=== PATIENT | male | born 1955 | race Caucasian/White ===

== ENCOUNTER 2016-04-17 14:02 | Inpatient (IN) | payer OTHER ==
[~2016-04-17] VITALS: Ht 185.4 cm; Wt 126.8 kg
[2016-04-18] MEDS ORDERED: DULC5TAB PO (14:12)
[2016-04-18] MEDS ORDERED: FERR324T4 PO (14:12)
[2016-04-18] MEDS ORDERED: OXYC-395 PO (14:12)
[2016-04-18] MEDS ORDERED: ZOLP10TA3 PO (14:12)
[2016-04-18] MEDS ORDERED: LEVO50TA4 PO (14:12)
[2016-04-18] MEDS ORDERED: CENTTAB PO (14:12)
[2016-04-25] VITALS (7 sets, daily range): BP systolic 95–129; BP diastolic 60–78; PULSE 68–86; RESP 16–18; TEMP 97.9–98.9; O2SAT 97–100
[2016-04-25] MEDS ORDERED: ceFAZolin 2 GM PREMIX 50 ML IV SCH (07:15)
[2016-04-25] MEDS ORDERED: INSULIN HUMAN REGULAR 1,000 UNITS/10 ML VIAL SQ PRN (07:15)
[2016-04-25] MEDS ORDERED: LACTATED RINGER'S 1000 ML IV SCH (07:15)
[2016-04-25] MEDS ORDERED: METOPROLOL TARTRATE 25 MG TAB PO PRN (07:15)
[2016-04-25] MEDS ORDERED: METRONIDAZOLE 500 MG/100 ML ISONTONIC SOLN IV SCH (07:15)
[2016-04-25] MEDS ORDERED: SODIUM CHLORID 0.9% 500 ML IV SCH (07:15)
[2016-04-25] MEDS ORDERED: ACETAMINOPHEN 1000 MG/100 ML VIAL IV ONE (07:17)
[2016-04-25] MEDS ORDERED: DEXT 5%-NACL 0.9% 1000 ML INJ 1,000 ML IV SCH (08:00)
[2016-04-25] MEDS ORDERED: DEXAMETHASONE SOD PHOS 4 MG/ML VIAL ONE (08:21)
[2016-04-25] MEDS ORDERED: MIDAZOLAM HCL 2 MG/2 ML VIAL ONE (08:21)
[2016-04-25] MEDS ORDERED: FAMOTIDINE 20 MG/2 ML VIAL ONE (08:21)
--- NOTE | 2016-04-25 10:19 | PD.OP ---
Operative Report Date of Surgery: Apr 25, 2016 Preoperative Diagnosis: rectal cancer Postoperative Diagnosis: same Procedure: cystoscopy with bilateral ureteral catheter placement Anesthesia: NIDHI Surgeon: Emir Bergman Cash Surrender Calculator(s): none Operation and Findings: Request for made for bilateral ureteral catheter placement by Dr. Dey. Patient was brought to the operating room and identified by myself as Amos Hargrove. He was prepped and draped in usual sterile fashion, received preprocedure antibiotics, was placed in dorsal lithotomy position and general endotracheal tube anesthesia was administered. 22 Divehi cystoscope was inserted in the bladder and subramanian cystoscopy did not reveal any abnormalities. Left ureteral orifice was identified and a 5 Divehi open-end catheter was inserted in the left ureteral orifice without difficulty. This was repeated on the right side without difficulty. The Ferguson was inserted and he tolerated the procedure well. Emir Bergman DO Apr 25, 2016 10:18
[2016-04-25] MEDS ORDERED: HYDROmorphone HCL PF 2 MG/ML VIAL ONE (11:23)
[2016-04-25] MEDS ORDERED: ONDANSETRON HCL 4 MG/2 ML VIAL IV PUSH ONE (12:00)
[2016-04-25] MEDS ORDERED: NEOSTIGMINE 3 MG/3 ML SYR IV ONE (12:00)
[2016-04-25] MEDS ORDERED: PROPOFOL 200 MG/20 ML AMP IV ONE (12:00)
[2016-04-25] MEDS ORDERED: LACTATED RINGER'S 1000 ML INJ 1,000 ML IV ONE (12:00)
[2016-04-25] MEDS ORDERED: NORMOSOL R INJ 3,000 ML IV ONE (12:00)
[2016-04-25] MEDS ORDERED: ceFAZolin INJ 1,000 MG VIAL IV ONE (13:30)
[2016-04-25 13:57] LABS: BLOOD GAS BASE EXCESS -1.4 mmol/L (-2-2); BLOOD GAS CARBOXYHEMOGLOBIN 1.9 % (0-4); BLOOD GAS HCO3 24 mmol/L (22-26); BLOOD GAS O2 HGB SATURATION 97 % (90-100); BLOOD GAS OXYGEN CONTENT 15.6 Vol % (12.0-20.0); BLOOD GAS PCO2 48 mmHg (38-42); BLOOD GAS PO2 185 mmHg (61-120); BLOOD GAS TOTAL HGB 11.2 G/DL (12.0-16.0); TEMP CORR TO 98.6
[2016-04-25 13:58] LABS: CRITICAL VALUE NO; DRAW SITE ART LINE; OXYGEN DEVICE VENTILATOR; STAT YES; VENT SETTINGS SEE OR
[2016-04-25 14:21] LABS: AUTOMATED NEUTROPHIL # 7.8 TH/MM3 (1.8-7.7); BASOPHIL % 0.2 % (0.0-2.0); EOSINOPHIL % 0.1 % (0.0-4.0); HEMO FLAGS DIFF FINAL; LYMPHOCYTE # 0.3 TH/MM3 (1.0-4.8); MEAN CELL VOLUME 85.9 FL (80.0-100.0); MEAN CORPUSCULAR HEMOGLOBIN 28.5 PG (27.0-34.0); MEAN CORPUSCULAR HGB CONC 33.2 % (32.0-36.0); MONO % 3.4 % (0.0-8.0); NEUT % 93.3 % (16.0-70.0); PLATELET COUNT 174 TH/MM3 (150-450); RED BLOOD COUNT 3.61 MIL/MM3 (4.50-5.90); RED CELL DISTRIBUTION WIDTH 22.4 % (11.6-17.2); WHITE BLOOD COUNT 8.4 TH/MM3 (4.0-11.0)
[2016-04-25] MEDS ORDERED: POTASSIUM CHLOR 20 MEQ PREMIX 100 ML IV PRN (15:15)
[2016-04-25] MEDS ORDERED: ACETAMINOPHEN 325 MG TAB PO PRN (15:15)
[2016-04-25] MEDS ORDERED: fentaNYL CITRATE 250 MCG/5 ML AMP ONE (15:15)
[2016-04-25] MEDS ORDERED: BENZOCAINE 6 MG/MENTHOL 10 MG LOZENGE SUCK-ON PRN (15:15)
[2016-04-25] MEDS ORDERED: ENALAPRILAT 2.5 MG/2 ML VIAL IV PRN (15:15)
[2016-04-25] MEDS ORDERED: diphenhydrAMINE HCL 50 MG/ML VIAL IV PRN (15:15)
[2016-04-25] MEDS ORDERED: Post-op Orders (for Pharmacy) MISC XX ONE (15:15)
[2016-04-25] MEDS ORDERED: SODIUM CHLORIDE 0.9% FLUSH 5 ML FLUSH IVF PRN (15:15)
[2016-04-25] MEDS ORDERED: ONDANSETRON HCL 4 MG/2 ML VIAL IV PRN (15:15)
[2016-04-25] MEDS ORDERED: ACETAMINOPHEN/HYDROcodone 325 MG/5 MG TAB PO PRN (15:15)
[2016-04-25] MEDS ORDERED: ENALAPRILAT 1.25 MG/ML VIAL IV PRN (15:15)
[2016-04-25] MEDS ORDERED: POTASSIUM CHLOR 40 MEQ PREMIX 100 ML IV PRN (15:15)
[2016-04-25] MEDS ORDERED: NALOXONE HCL 0.4 MG/ML AMP IV PRN (15:15)
[2016-04-25] MEDS ORDERED: *ONDANSETRON 4 MG VIAL PERIprocedural Use ONLY ONE (15:23)
[2016-04-25] MEDS ORDERED: *PROMETHAZINE 25 MG/ML VIAL PERIprocedural use ONLY ONE (15:23)
[2016-04-25] MEDS ORDERED: *morphine SULFATE 8 MG/ML PERIprocedure ONLY ONE (15:45)
[2016-04-25] MEDS: D5-NS + KCL 20 MEQ INJ 1,000 ML IV SCH (15:46)
[2016-04-25 15:48] LABS: AUTOMATED NEUTROPHIL # 9.1 TH/MM3 (1.8-7.7); BASOPHIL % 0.2 % (0.0-2.0); HEMATOCRIT 33.4 % (39.0-51.0); HEMO FLAGS DIFF FINAL; LYMPHOCYTE # 0.3 TH/MM3 (1.0-4.8); MEAN CELL VOLUME 86.3 FL (80.0-100.0); MEAN CORPUSCULAR HEMOGLOBIN 28.6 PG (27.0-34.0); MEAN CORPUSCULAR HGB CONC 33.2 % (32.0-36.0); MONO % 4.6 % (0.0-8.0); NEUT % 92.2 % (16.0-70.0); PLATELET COUNT 199 TH/MM3 (150-450); RED BLOOD COUNT 3.87 MIL/MM3 (4.50-5.90); RED CELL DISTRIBUTION WIDTH 22.1 % (11.6-17.2); WHITE BLOOD COUNT 9.8 TH/MM3 (4.0-11.0)
[2016-04-25 16:04] LABS: BICARBONATE 27.4 MEQ/L (21.0-32.0); POTASSIUM 4.4 MEQ/L (3.5-5.1)
[2016-04-25] MEDS: MORPHINE SULFATE 30 MG/30 ML PCA IV SCH (16:32)
[2016-04-25] MEDS: metroNIDAZOLE 500 MG INJ 100 ML IV SCH (18:55)
[2016-04-25] MEDS: KETOROLAC TROMETHAMINE 30 MG/ML (IVP) VIAL IVP PRN (20:26)
[2016-04-25] MEDS: SODIUM CHLORIDE 0.9% FLUSH 5 ML FLUSH IVF SCH (21:00)
[2016-04-25] MEDS: PCA - TOTAL MG MORPHINE DELIVERED PER SHIFT SCH (22:00)
[2016-04-25] MEDS: ACETAMINOPHEN/HYDROcodone 325 MG/5 MG TAB PO PRN (23:27)
[2016-04-26] VITALS (19 sets, daily range): BP systolic 80–103; BP diastolic 47–65; PULSE 59–79; RESP 14–20; TEMP 98–98.9; O2SAT 93–98
[2016-04-26] MEDS: D5-NS + KCL 20 MEQ INJ 1,000 ML IV SCH ×4 (00:49→12:13)
[2016-04-26] MEDS: metroNIDAZOLE 500 MG INJ 100 ML IV SCH ×2 (00:50→08:26)
[2016-04-26] MEDS: KETOROLAC TROMETHAMINE 30 MG/ML (IVP) VIAL IVP PRN ×3 (05:24→23:31)
[2016-04-26 05:29] LABS: AUTOMATED NEUTROPHIL # 4.1 TH/MM3 (1.8-7.7); BASOPHIL % 0.3 % (0.0-2.0); EOSINOPHIL % 0.1 % (0.0-4.0); HEMATOCRIT 28.3 % (39.0-51.0); HEMO FLAGS DIFF FINAL; LYMPH % 7.8 % (9.0-44.0); LYMPHOCYTE # 0.4 TH/MM3 (1.0-4.8); MEAN CORPUSCULAR HEMOGLOBIN 28.6 PG (27.0-34.0); MEAN CORPUSCULAR HGB CONC 32.9 % (32.0-36.0); MONO % 10.8 % (0.0-8.0); PLATELET COUNT 148 TH/MM3 (150-450); RED BLOOD COUNT 3.25 MIL/MM3 (4.50-5.90); RED CELL DISTRIBUTION WIDTH 22.2 % (11.6-17.2); WHITE BLOOD COUNT 5.1 TH/MM3 (4.0-11.0)
[2016-04-26 05:49] LABS: BICARBONATE 28.6 MEQ/L (21.0-32.0)
[2016-04-26] MEDS: PCA - TOTAL MG MORPHINE DELIVERED PER SHIFT SCH ×3 (05:52→22:00)
[2016-04-26] MEDS: LEVOTHYROXINE SODIUM 50 MCG TAB PO SCH (05:58)
[2016-04-26] MEDS: MORPHINE SULFATE 30 MG/30 ML PCA IV SCH ×2 (08:22→22:29)
[2016-04-26] MEDS: PANTOPRAZOLE SODIUM 40 MG VIAL IVP SCH (08:26)
[2016-04-26] MEDS: SODIUM CHLORIDE 0.9% FLUSH 5 ML FLUSH IVF SCH ×2 (08:35→21:00)
--- NOTE | 2016-04-26 11:32 | HHI.PR ---
Subjective Remarks C/R Surg POD #1 afebrile, VSS UO good LEXA mod stent dc'd Objective - Vital Signs Date Time Temp Pulse Resp B/P Pulse Ox O2 Delivery O2 Flow Rate FiO2 04/26/16 08:00 93 Room Air 04/26/16 08:00 98.0 69 16 103/57 04/26/16 07:44 21 04/25/16 16:00 2 Result Diagram: 04/26/16 0500 04/26/16 0500 Objective Remarks PE alert Abd - soft, wound dry, stoma pink A/P Assessment and Plan Imp: stable, OOB tx to floor decr IVF Beto Carl MD Apr 26, 2016 11:32
[2016-04-26] MEDS: ACETAMINOPHEN/HYDROcodone 325 MG/5 MG TAB PO PRN (14:40)
[2016-04-26] MEDS: HEPARIN SODIUM - SQ 10,000 UNITS/ML VIAL SQ SCH (14:41)
--- NOTE | 2016-04-26 18:27 | MP ---
cc: HEENA SUERO MD,ERNIE EASLEY MD, MD MARSHA, LEMUEL JULES MD DATE OF SURGERY 04/25/16 PREOPERATIVE DIAGNOSIS Rectal cancer. POSTOPERATIVE DIAGNOSIS Rectal cancer. PROCEDURE Robotic lysis of adhesions. Robotic abdominoperineal resection (APR). SURGEON Aishwarya Jules MD TECHNICIAN CHEMICAL CLEANING Lasha ANESTHESIA General per ET tube ESTIMATED BLOOD LOSS 400 mL OPERATIVE INDICATIONS The patient is a 60-year-old male who was recently diagnosed with an extremely low rectal cancer. He underwent neoadjuvant chemotherapy and radiation and presented for resection. OPERATIVE FINDINGS There was no visible tumor or other abnormalities noted within the liver. The gallbladder was not visualized. He had a quite redundant sigmoid colon and when the specimen was removed, he had a scar at the area of the previous tumor, just above the anal verge but no visible tumor. PROCEDURE IN DETAIL The patient was brought to the operating room and placed in the supine position. After induction of general anesthesia, the patient was placed in Foster stirrups and all bony prominences were carefully padded. The skin of the anterior abdominal wall, as well as the perineal area, was then prepped and draped in the usual sterile fashion. Dr. Bergman then came in and performed cystoscopy with placement of bilateral ureteral catheters: Please see his operative note for details. A site was then chosen for the camera, being located 2 cm to the right and above the umbilicus. A 10-12 trocar was placed at this location under direct vision, using the laparoscope. CO2 insufflation was undertaken, and a brief abdominal survey was performed with nothing noted that would preclude the robotic approach. There were some small adhesions to the anterior abdominal wall. The remainder of the port sites were then placed as follows: #1 port was placed just inside the right anterior superior iliac spine. This was 10-12 port. A #5 assist port was placed below the right costal margin, in the right midclavicular line. The #3 port was placed in line with the umbilicus, in the right anterior axillary line, and the #2 port was placed just above the umbilical line, in the left midclavicular line. The patient was hydroplaned with head down and slightly to the right, and the small bowel was gently retracted up and out of the pelvis and to the right. The robot was then docked. The sigmoid colon was retracted down and to the right, and the peritoneum was scored on the right. Dissection continued in this plane, posterior to the vessels, over laterally and down into the pelvis. At this point however, most likely due to the radiation, the tissue was somewhat sticky and I was not really able to appreciate the left ureter. The sigmoid colon was retracted down to the right and the lateral peritoneal attachments were dissected free, until the left ureter was clearly identified. This was then swept away from the specimen. Dissection then continued underneath, freeing up the undersurface of the inferior mesenteric vessels just at the takeoff from the aorta. These vessels were slowly and painstakingly dissected free circumferentially, doubly clamped proximally, singly distally, and divided. Attention was then turned posteriorly. Dissection continued in the pelvis posteriorly down to the level of the distal rectum. Due to the radiation effect, there was quite a bit of oozing throughout this portion of the procedure. Dissection then continued up and around the right lateral pelvic sidewall. On the left pelvic sidewall there was noticed to be some scar tissue, which was dissected free prior to doing our final resection. Dissection continued then both posteriorly and to the right and left of the rectum, down to the level of the pelvic floor. A site was then chosen for proximal division of the bowel, where it would come up nicely to the abdominal wall. The mesentery at this level was divided using the harmonic scalpel and the echelon Endo stapler was placed across the bowel at this level. All dissection beds were then examined and hemostasis was obtained with electrocautery. The robot was then undocked. The perineal portion of the procedure then was completed as follows: A lenticular shaped incision was made sharply around the anus and, using electrocautery, dissection was carried up just outside the rectum gradually and slowly dissecting up and into the pelvis. Eventually, we were able to dissect this free circumferentially, and deliver the distal end of the bowel out through the perineal opening. Hemostasis was then obtained with electrocautery, and the area was irrigated with warm normal saline. The levator ani was reapproximated in an interrupted fashion using #1 PDS and the more superficial tissue was then reapproximated in interrupted fashion using 0 Vicryl sutures. The skin was then closed in an interrupted subcuticular fashion using 3-0 Vicryl and two sutures of 2-0 nylon were then placed as well. CO2 insufflation was then resumed, and the laparoscope was introduced into the field. The 10-12 trocar sites were then closed with the crossbow closure device and 0 Vicryl suture, and held but not completely closed. A #10 LEXA was placed through the left lower quadrant port site into the pelvis, and Gorge was gently dusted through the pelvis as well. All dissection beds were examined and there was no sign of any significant bleeding. CO2 insufflation was then removed. The previously placed fascial sutures were then closed. The skin was then closed at the port sites, using 3-0 Vicryl in an interrupted subcuticular fasion and the drain was sutured in place using 3-0 nylon. A site was then chosen for the stoma, being located 1[address] the umbilicus to the left anterior superior iliac spine, at the midportion of the rectus abdominis muscle. A 1.5 cm ellipse of skin was then removed sharply and the preperitoneal fat was removed with electrocautery. A 1.5 cm incision was then made in the fascia vertically, and the fibers of the rectus abdominis muscle were then split. The posterior fascia was incised the length of the anterior fascial incision. The proximal stapled end of the bowel was then brought up through the incision and the stoma was then matured in a typical Alisson fashion, using 3-0 Vicryl. A stomal appliance and sterile dressing were then applied. All sponge, needle and instrument counts were correct. The right ureteral stent was then removed and the patient was returned to the post anesthesia care unit in stable condition. MD WAI Zazueta/ /3:17 PM /6:06 PM [facility]
[2016-04-26 21:43] LABS: MAGNESIUM 2.1 MG/DL (1.5-2.5)
[2016-04-27] VITALS (13 sets, daily range): BP systolic 81–129; BP diastolic 41–76; PULSE 67–94; RESP 14–18; TEMP 97.7–99; O2SAT 92–100
[2016-04-27] MEDS: HEPARIN SODIUM - SQ 10,000 UNITS/ML VIAL SQ SCH ×2 (03:31→16:51)
[2016-04-27 04:10] LABS: AUTOMATED NEUTROPHIL # 3.9 TH/MM3 (1.8-7.7); BASOPHIL % 0.4 % (0.0-2.0); EOSINOPHIL % 0.7 % (0.0-4.0); HEMATOCRIT 25.9 % (39.0-51.0); HEMO FLAGS DIFF FINAL; LYMPH % 6.9 % (9.0-44.0); LYMPHOCYTE # 0.3 TH/MM3 (1.0-4.8); MEAN CELL VOLUME 86.3 FL (80.0-100.0); MEAN CORPUSCULAR HEMOGLOBIN 29.1 PG (27.0-34.0); MEAN CORPUSCULAR HGB CONC 33.7 % (32.0-36.0); MONO % 11.2 % (0.0-8.0); NEUT % 80.8 % (16.0-70.0); PLATELET COUNT 133 TH/MM3 (150-450); RED CELL DISTRIBUTION WIDTH 21.6 % (11.6-17.2); WHITE BLOOD COUNT 4.8 TH/MM3 (4.0-11.0)
[2016-04-27 04:31] LABS: BICARBONATE 26.8 MEQ/L (21.0-32.0); POTASSIUM 3.9 MEQ/L (3.5-5.1)
[2016-04-27] MEDS: PCA - TOTAL MG MORPHINE DELIVERED PER SHIFT SCH (06:00)
[2016-04-27] MEDS: D5-NS + KCL 20 MEQ INJ 1,000 ML IV SCH (08:13)
[2016-04-27] MEDS: SODIUM CHLORIDE 0.9% FLUSH 5 ML FLUSH IVF SCH ×2 (08:20→21:00)
[2016-04-27] MEDS: KETOROLAC TROMETHAMINE 30 MG/ML (IVP) VIAL IVP PRN (08:20)
[2016-04-27] MEDS: LEVOTHYROXINE SODIUM 50 MCG TAB PO SCH (08:22)
[2016-04-27] MEDS: PANTOPRAZOLE SODIUM 40 MG VIAL IVP SCH (08:25)
[2016-04-27] MEDS: ACETAMINOPHEN/HYDROcodone 325 MG/5 MG TAB PO PRN ×2 (11:03→18:17)
[2016-04-27] MEDS: 1/2 NS + KCL 20 MEQ INJ 1,000 ML IV SCH (12:00)
[2016-04-27] MEDS ORDERED: POTASSIUM CHLORIDE INJ 20 MEQ in SODIUM CHLOR 0.45% 1000 ML INJ 1,000 ML IV SCH (12:00)
--- NOTE | 2016-04-27 15:15 | MB ---
cc: MIGUELINA FLORES M.D. DATE OF CONSULTATION: 04/27/2016. REASON FOR CONSULTATION: Syncopal episode. HISTORY OF PRESENT ILLNESS: Mr. Garcia is a 60-year-old gentleman with morbid obesity and high blood pressure. He has rectal cancer. He was on radiation and chemotherapy. He was admitted for a low anterior resection. During hospitalization, he was put on a morphine pump. The surgery was done on the . The gentleman was ambulating yesterday and today he was ambulating again. Today during a walk the gentleman was still dizzy and was sitting down and he passed out. He had adequate pulse and systolic blood pressure was 116. The gentleman rapidly recuperated from the episode. There was no recording in the telemetry of what happened but the nurse made sure there were some good pulses. The gentleman recuperated all his neurological and motor capacity. There was no loss of sphincter control. I was consulted by ____ for evaluation and management. The case was extensively discussed with him over the phone. The chart was reviewed. The patient was evaluated. ALLERGIES: None. SOCIAL HISTORY: Currently the gentleman denies smoking and drinking. FAMILY HISTORY: Noncontributory to his current medical condition. MEDICATIONS: 1. Ancef. 2. Metronidazole. 3. Potassium. 4. Warren. 5. Morphine IV pump was discontinued. 6. Enalapril IV. 7. Levoxyl. 8. Toradol. 9. Protonix. REVIEW OF SYSTEMS: Currently he refers no chest pain and no chest discomfort. Some pain at the surgical site but received Warren already. No fever. PHYSICAL EXAMINATION: GENERAL: Alert, fully oriented, very pleasant. There are a lot of people/family at bedside. VITAL SIGNS: Blood pressure 105/65, pulse 94, respiratory rate 18. LUNGS: Ventilated. CARDIOVASCULAR: S1 and S2. Regular. ABDOMEN: Abdomen obese, no mass, no bruits. EXTREMITIES: No edema. EKGS: Electrocardiogram shows sinus rhythm. Telemetry indicates a rate of around 80 beats per minute but the EKG yesterday indicates sinus rhythm, , right bundle-branch block and minimal S-T changes. LABORATORY DATA: Hemoglobin is 8.7, white blood cells 4.8. Creatinine is 1.26, potassium 3.9. ASSESSMENT AND RECOMMENDATIONS: Mr. Garcia currently is stable. His blood pressure is adequate. He is in sinus rhythm. There was atrial bigeminy on the electrocardiogram yesterday that is not significant. The gentleman apparently had a vagal episode. Blood pressure recuperated rapidly. There is no chest pain or chest discomfort. No arrhythmia recorded. His hemoglobin is low at 8.7. There may be an issue of fluid and dehydration. At this point, my recommendation: 1. Continue with current management. 2. Increase fluid intake. 3. I am going to order a 2-D echocardiogram to evaluate wall motion and valvular function. I will follow him during the hospitalization. Miguelina Flores MD /SHERRELL /2:24 PM /3:06 PM
--- NOTE | 2016-04-27 15:16 | EKG ---
Date Performed: 04/26/2016 Time Performed: 18:38:58 PTAGE: 60 years EKG: Sinus rhythm with frequent PVC(s), with one couplet of PVC's Right bundle branch block Inferior T wave changes ar e nonspecific Low QRS voltages in precordial leads When compared to previous tracing, the PVC's are n ew. Abnormal ECG PREVIOUS TRACING : 04/18/2016 10.43 DOCTOR: Ike Suarez Interpretating Date/Time 04/27/2016 15:15:53
--- NOTE | 2016-04-27 21:14 | HHI.PR ---
Subjective Remarks C/R Surg POD #2 afebrile, VSS - syncopal episode - vagal UO good LEXA mod Objective - Vital Signs Date Time Temp Pulse Resp B/P Pulse Ox O2 Delivery O2 Flow Rate FiO2 04/27/16 15:00 97.7 77 18 110/64 98 04/27/16 08:00 Room Air 04/26/16 20:22 21 04/25/16 16:00 2 Result Diagram: 04/27/16 0329 04/27/16 0329 Objective Remarks PE alert Abd - soft, wound dry, stoma pink min tympany A/P Assessment and Plan Imp: stable, OOB cardiac galeana decr IVF adv PO Beto Carl MD Apr 27, 2016 21:13
[2016-04-28] VITALS (20 sets, daily range): BP systolic 107–125; BP diastolic 66–80; PULSE 67–91; RESP 18; TEMP 97.7–98.7; O2SAT 95–98
[2016-04-28] MEDS: ACETAMINOPHEN/HYDROcodone 325 MG/5 MG TAB PO PRN (00:51)
[2016-04-28] MEDS: KETOROLAC TROMETHAMINE 30 MG/ML (IVP) VIAL IVP PRN (05:10)
[2016-04-28] MEDS: HEPARIN SODIUM - SQ 10,000 UNITS/ML VIAL SQ SCH ×2 (05:10→13:35)
[2016-04-28] MEDS: LEVOTHYROXINE SODIUM 50 MCG TAB PO SCH (05:10)
[2016-04-28] MEDS: 1/2 NS + KCL 20 MEQ INJ 1,000 ML IV SCH ×2 (05:11→22:55)
[2016-04-28] MEDS: SODIUM CHLORIDE 0.9% FLUSH 5 ML FLUSH IVF SCH ×2 (08:09→20:11)
[2016-04-28] MEDS: PANTOPRAZOLE SODIUM 40 MG VIAL IVP SCH (08:14)
[2016-04-28 09:14] LABS: AUTOMATED NEUTROPHIL # 3.1 TH/MM3 (1.8-7.7); BASOPHIL % 0.3 % (0.0-2.0); EOSINOPHIL # 0.1 TH/MM3 (0-0.4); EOSINOPHIL % 2.3 % (0.0-4.0); HEMATOCRIT 26.3 % (39.0-51.0); HEMO FLAGS DIFF FINAL; LYMPH % 6.7 % (9.0-44.0); LYMPHOCYTE # 0.2 TH/MM3 (1.0-4.8); MEAN CELL VOLUME 86.8 FL (80.0-100.0); MEAN CORPUSCULAR HGB CONC 33.4 % (32.0-36.0); MONO % 7.9 % (0.0-8.0); NEUT % 82.8 % (16.0-70.0); PLATELET COUNT 117 TH/MM3 (150-450); RED BLOOD COUNT 3.03 MIL/MM3 (4.50-5.90); RED CELL DISTRIBUTION WIDTH 21.5 % (11.6-17.2); WHITE BLOOD COUNT 3.7 TH/MM3 (4.0-11.0)
[2016-04-28 09:36] LABS: BICARBONATE 29.2 MEQ/L (21.0-32.0); POTASSIUM 3.8 MEQ/L (3.5-5.1)
--- NOTE | 2016-04-28 09:44 | HHI.PR ---
Subjective Remarks POD #3 s/p robotic ROLANDO, APR Still sore, particularly on right Objective Vital Signs Date Time Temp Pulse Resp B/P Pulse Ox O2 Delivery O2 Flow Rate FiO2 04/28/16 09:14 73 04/28/16 08:01 67 04/28/16 07:52 72 04/28/16 07:52 98.7 72 18 114/77 95 04/28/16 07:52 95 Room Air 04/28/16 06:10 18 04/28/16 06:00 68 04/28/16 03:00 98 Nasal Cannula 2.00 04/28/16 03:00 98.2 68 18 120/79 98 04/28/16 01:55 18 04/27/16 23:00 71 04/27/16 23:00 99 Nasal Cannula 2.00 04/27/16 23:00 98.2 71 18 129/76 99 04/27/16 21:30 94 BLEED-IN 2.00 04/27/16 19:00 99 Nasal Cannula 2.00 04/27/16 19:00 79 04/27/16 19:00 98.3 79 18 125/75 100 04/27/16 15:00 97.7 77 18 110/64 98 04/27/16 15:00 79 04/27/16 11:00 98.0 94 18 105/65 98 I/O 04/27/16 04/27/16 04/27/16 04/28/16 04/28/16 04/28/16 07:00 15:00 23:00 07:00 15:00 23:00 Intake Total 3473 ml 2100 ml 1404 ml Output Total 1370 ml 1710 ml 1165 ml Balance 2103 ml 390 ml 239 ml Intake Oral 720 ml 1000 ml 660 ml IV Total 2753 ml 1100 ml 744 ml Output Urine Total 1300 ml 1600 ml 1100 ml Stool Total 0 ml 25 ml Drainage Total 70 ml 110 ml 40 ml Result Diagram: 04/28/16 0845 04/28/16 0845 Objective Remarks Abdomen soft, nondistended, tender Wounds clean, stoma pink Perineum clean Assessment and Plan Assessment and Plan Await Echo Advance diet D/C young 1 unit PRBC Lasix Increase dose hydrocodone Holley Dey MD Apr 28, 2016 09:44
[2016-04-28] MEDS: ACETAMINOPHEN/HYDROcodone 325 MG/7.5 MG TAB PO PRN ×4 (09:58→20:09)
[2016-04-28] MEDS: FUROSEMIDE 20 MG/2 ML VIAL IV PUSH SCH (17:47)
--- NOTE | 2016-04-28 22:55 | HHI.PR ---
Subjective Remarks Feeling ok. Some back pain Objective Vital Signs Date Time Temp Pulse Resp B/P Pulse Ox O2 Delivery O2 Flow Rate FiO2 04/28/16 21:00 80 04/28/16 20:00 74 04/28/16 19:00 71 04/28/16 19:00 98.2 71 18 107/69 95 04/28/16 19:00 95 Room Air 04/28/16 18:55 18 04/28/16 18:02 74 04/28/16 17:01 80 04/28/16 16:01 84 04/28/16 15:31 18 04/28/16 15:30 97.7 79 18 111/77 97 04/28/16 15:30 97 Room Air 04/28/16 15:30 91 04/28/16 14:29 76 04/28/16 13:06 97.8 70 18 112/66 97 04/28/16 13:04 70 04/28/16 13:03 97.9 68 18 125/69 97 04/28/16 12:03 89 04/28/16 11:38 89 04/28/16 11:38 98.2 76 18 124/80 95 04/28/16 11:38 95 Room Air 04/28/16 10:47 96 21 04/28/16 10:01 83 04/28/16 09:14 73 04/28/16 08:01 67 04/28/16 07:52 72 04/28/16 07:52 98.7 72 18 114/77 95 04/28/16 07:52 95 Room Air 04/28/16 06:10 18 04/28/16 06:00 68 04/28/16 03:00 98 Nasal Cannula 2.00 04/28/16 03:00 98.2 68 18 120/79 98 04/28/16 01:55 18 04/27/16 23:00 71 04/27/16 23:00 99 Nasal Cannula 2.00 04/27/16 23:00 98.2 71 18 129/76 99 I/O 04/27/16 04/27/16 04/27/16 04/28/16 04/28/16 04/28/16 07:00 15:00 23:00 07:00 15:00 23:00 Intake Total 3473 ml 2100 ml 1404 ml 1390 ml Output Total 1370 ml 1710 ml 1165 ml 650 ml Balance 2103 ml 390 ml 239 ml 740 ml Intake Oral 720 ml 1000 ml 660 ml 480 ml IV Total 2753 ml 1100 ml 744 ml 650 ml Packed Cells 260 ml Output Urine Total 1300 ml 1600 ml 1100 ml 550 ml Stool Total 0 ml 25 ml Drainage Total 70 ml 110 ml 40 ml 100 ml Result Diagram: 04/28/16 0845 04/28/16 0845 Imaging Alert, fully oriented, in bed Lungs: ventilated Heart: S1, S2 regular, no gallop Abdomen: soft, no mass Ext: no edema Current Medications Medications (Trade) Dose Ordered Sig/Joyce Route Start Time Stop Time Status Last Admin (NS Flush) 2 ml UNSCH PRN IVF 04/25/16 15:15 (NS Flush) 2 ml BID IVF 04/25/16 21:00 04/28/16 20:11 (Protonix Inj) 40 mg DAILY IVP 04/26/16 09:00 04/28/16 08:14 (Zofran Inj) 4 mg Q6H PRN IV 04/25/16 15:15 04/25/16 23:28 (Vasotec Inj) 1.25 mg Q4H PRN IV 04/25/16 15:15 (Vasotec Inj) 2.5 mg Q6H PRN IV 04/25/16 15:15 Benzocaine/ Menthol 1 lozenge 1 lozenge UNSCH PRN SUCK-ON 04/25/16 15:15 Potassium Chloride 100 ml @ 50 mls/hr UNSCH PRN IV 04/25/16 15:15 (KCl 40 Meq Premix Inj) 100 ml @ 25 mls/hr UNSCH PRN IV 04/25/16 15:15 (Heparin Inj) 5,000 units Q12H SQ 04/26/16 14:15 04/28/16 13:35 (Narcan Inj) 0.4 mg UNSCH PRN IV 04/25/16 15:15 (Benadryl Inj) 25 mg Q6H PRN IV 04/25/16 15:15 04/25/16 23:27 (Morphine 1 Mg/ ml NITRATE OPERATOR) 30 mg UNSCH IV 04/25/16 15:15 04/26/16 22:29 Levothyroxine Sodium 50 mcg 50 mcg DAILY@06 PO 04/26/16 06:00 04/28/16 05:10 (1/2 NS + KCl 20 Meq Inj) 1,000 ml @ 60 mls/hr [id number] IV 04/27/16 12:00 04/28/16 05:11 (Lasix Inj) 20 mg BID@09,18 IV PUSH 04/28/16 18:00 04/30/16 17:59 04/28/16 17:47 ([place] 7.5-325 Mg) 1 tab Q6H PRN PO 04/28/16 09:45 04/28/16 20:09 ([place] 7.5-325 Mg) 2 tab Q6H PRN PO 04/28/16 09:45 04/28/16 14:24 Assessment and Plan Problem List: (1) Syncope Status: Acute Plan: No new episode reported, Ambulating again. No chest pain, no palpitation. No pause observed on telemetry. Continue with current management Jv Vega MD Apr 28, 2016 22:55
[2016-04-29] VITALS: BP 106/72; PULSE 76; RESP 20; TEMP 98; O2SAT 96
[2016-04-29] MEDS: ACETAMINOPHEN/HYDROcodone 325 MG/7.5 MG TAB PO PRN ×4 (01:37→20:35)
[2016-04-29] MEDS: HEPARIN SODIUM - SQ 10,000 UNITS/ML VIAL SQ SCH ×2 (01:37→14:50)
[2016-04-29] MEDS: LEVOTHYROXINE SODIUM 50 MCG TAB PO SCH (06:32)
[2016-04-29 08:00] VITALS: BP 132/77; PULSE 70; RESP 17; TEMP 97.4; O2SAT 91
[2016-04-29] MEDS: FUROSEMIDE 20 MG/2 ML VIAL IV PUSH SCH ×2 (08:27→17:07)
[2016-04-29] MEDS: SODIUM CHLORIDE 0.9% FLUSH 5 ML FLUSH IVF SCH ×2 (08:27→20:35)
[2016-04-29] MEDS: PANTOPRAZOLE SODIUM 40 MG VIAL IVP SCH (08:28)
[2016-04-29 12:00] VITALS: BP 120/78; PULSE 89; RESP 17; TEMP 97.1; O2SAT 92
[2016-04-29] MEDS: 1/2 NS + KCL 20 MEQ INJ 1,000 ML IV SCH (15:25)
[2016-04-29 16:00] VITALS: BP 122/70; PULSE 80; RESP 17; TEMP 95.4; O2SAT 94
--- NOTE | 2016-04-29 18:13 | HHI.PR ---
Subjective Remarks POD #4 s/p robotic ROLANDO, APR Comfortable now, pain earlier Objective Vital Signs Date Time Temp Pulse Resp B/P Pulse Ox O2 Delivery O2 Flow Rate FiO2 04/29/16 16:00 95.4 80 17 122/70 94 04/29/16 15:49 Room Air 2.00 21 04/29/16 12:00 Room Air 2.00 21 04/29/16 12:00 97.1 89 17 120/78 92 04/29/16 08:25 Room Air 2.00 21 04/29/16 08:00 97.4 70 17 132/77 91 04/29/16 00:00 98.0 76 20 106/72 96 04/28/16 21:00 80 04/28/16 20:00 74 04/28/16 19:00 71 04/28/16 19:00 98.2 71 18 107/69 95 04/28/16 19:00 95 Room Air 04/28/16 18:55 18 I/O 04/28/16 04/28/16 04/28/16 04/29/16 04/29/16 04/29/16 07:00 15:00 23:00 07:00 15:00 23:00 Intake Total 1404 ml 1850 ml 701 ml 736 ml Output Total 1165 ml 1750 ml 650 ml 2355 ml Balance 239 ml 100 ml 51 ml -1619 ml Intake Oral 660 ml 700 ml 240 ml 240 ml IV Total 744 ml 890 ml 461 ml 496 ml Packed Cells 260 ml Output Urine Total 1100 ml 1550 ml 650 ml 2225 ml Stool Total 25 ml 50 ml Drainage Total 40 ml 150 ml 130 ml # Bowel Movements 0 Result Diagram: 04/28/16 0845 04/28/16 0845 Objective Remarks Abdomen soft, nondistended, tender Wounds clean, stoma pink Perineum clean Assessment and Plan Assessment and Plan HL IV Home soon Holley Dey MD Apr 29, 2016 18:12
[2016-04-29 18:20] VITALS: O2SAT 94
[2016-04-29 20:00] VITALS: BP 118/78; PULSE 71; RESP 17; TEMP 98.9; O2SAT 94
[2016-04-30] VITALS: BP 114/68; PULSE 82; RESP 17; TEMP 97.9; O2SAT 94
[2016-04-30] MEDS: HEPARIN SODIUM - SQ 10,000 UNITS/ML VIAL SQ SCH (01:56)
[2016-04-30] MEDS: LEVOTHYROXINE SODIUM 50 MCG TAB PO SCH (05:13)
[2016-04-30] MEDS: ACETAMINOPHEN/HYDROcodone 325 MG/7.5 MG TAB PO PRN ×3 (05:13→18:13)
[2016-04-30 08:00] VITALS: BP 116/77; PULSE 75; RESP 18; TEMP 98.9; O2SAT 94
[2016-04-30 10:03] VITALS: O2SAT 94
[2016-04-30] MEDS: FUROSEMIDE 20 MG/2 ML VIAL IV PUSH SCH (10:05)
[2016-04-30] MEDS: PANTOPRAZOLE SODIUM 40 MG VIAL IVP SCH (10:06)
[2016-04-30] MEDS: SODIUM CHLORIDE 0.9% FLUSH 5 ML FLUSH IVF SCH (10:06)
[2016-04-30 12:00] VITALS: BP 120/81; PULSE 84; RESP 19; TEMP 98.7; O2SAT 93
[2016-04-30 16:00] VITALS: BP 108/60; PULSE 85; RESP 17; TEMP 99.2; O2SAT 93
[2016-04-30] MEDS ORDERED: HYDR-3580 PO ×2 (18:10→18:15)
[2016-04-30 18:20] VITALS: O2SAT 93
--- NOTE | 2016-05-04 15:07 | MD ---
cc: LEMUEL JULES M.D. ADMISSION DATE: 04/25/2016 DISCHARGE DATE: 04/30/2016 ADMISSION DIAGNOSIS: Rectal cancer. DISCHARGE DIAGNOSIS: 1. Rectal cancer 2. Adhesions. PROCEDURES PERFORMED: 1. Robotic lysis of adhesions. 2. Robotic abdominoperineal resection. HOSPITAL COURSE: The patient is a 60-year-old male who was recently diagnosed with extremely low rectal cancer. He underwent neoadjuvant chemotherapy and radiation and came to the hospital on April 25, 2016 after an outpatient bowel prep. He was taken to the operating room where he underwent the above-named procedures. Postoperatively he did well. He did have one episode of lightheadedness leading to a very brief loss of consciousness believed to be vagal in origin. He was evaluated by cardiology who felt that this was not cardiac in origin. He was discharged home on postop day #4 with instructions to followup with myself in the office. Final pathology revealed a small area of residual cancer with no lymphovascular invasion, perineural invasion or metastatic cancer in any of the lymph nodes. He was instructed to follow up with myself in the office in three weeks. MD WAI Zazueta/SHERRELL /6:14 PM /2:47 PM [facility]
== END 2016-04-30 18:58 | disposition home or self-care (01) | DRG 330 ==
LOC: HSDI 04-25 06:19 → EDUNIT# 04-25 08:30 → HCPC 04-25 16:24 → N07A 04-28 22:10
PROVIDERS: ADMIT Colon & Rectal Surgery; ATTEND Colon & Rectal Surgery
PROC: 0DNV4ZZ Release Mesentery, Percutaneous Endoscopic Approach (ICD-10-PCS; 2016-04-25)
PROC: 0DBQ0ZZ Excision of Anus, Open Approach (ICD-10-PCS; 2016-04-25)
PROC: 0DBN0ZZ Excision of Sigmoid Colon, Open Approach (ICD-10-PCS; 2016-04-25)
PROC: 8E0W8CZ Robotic Assisted Procedure of Trunk Region, Via Natural or Artificial Opening Endoscopic (ICD-10-PCS; 2016-04-25)
PROC: 0T9880Z Drainage of Bilateral Ureters with Drainage Device, Via Natural or Artificial Opening Endoscopic (ICD-10-PCS; 2016-04-25)
PROC: 0D1N0Z4 Bypass Sigmoid Colon to Cutaneous, Open Approach (ICD-10-PCS; principal; 2016-04-25 08:40)
PROC: 0DTP0ZZ Resection of Rectum, Open Approach (ICD-10-PCS; 2016-04-25 08:40)
DX: C20 Malignant neoplasm of rectum (principal); Q43.8 Other specified congenital malformations of intestine; E66.01 Morbid (severe) obesity due to excess calories; R55 Syncope and collapse; Z68.36 Body mass index [BMI] 36.0-36.9, adult; K66.0 Peritoneal adhesions (postprocedural) (postinfection); I45.10 Unspecified right bundle-branch block; E86.0 Dehydration; D64.9 Anemia, unspecified; E03.9 Hypothyroidism, unspecified; Z92.21 Personal history of antineoplastic chemotherapy; Z92.3 Personal history of irradiation
CPT/HCPCS: 36430; 80048; 82805; 83735; 84132; 84484; 85025; 86850; 86900; 86901; 86920; 88309; 93005; 94150; C9113; J0131; J0690; J1100; J1170; J1200; J1644; J1885; J1940; J2250; J2270; J2405; J2550; J2710; J3010; J3480; J7120; P9016

== ENCOUNTER → 2016-04-18 | Outpatient (CLI) | payer OTHER ==
[~2016-04-18] MED LIST: CENTTAB PO; DULC5TAB PO; FERR324T4 PO; HYDR-3580 PO; LEVO50TA4 PO; OXYC-395 PO; ZOLP10TA3 PO
[2016-04-18 11:20] LABS: BLOOD, URINE NEG (NEG); COMMENT (UR) CULT NOT INDICATED; CULTURE IF INDICATED CULT NOT INDICATED; GLUCOSE,URINE NEG (NEG); KETONE, URINE NEG (NEG); MUCUS URINE FEW /lpf (OCC); NITRITE,URINE NEG (NEG); PH, URINE 6.5 (5.0-8.5); SQUAMOUS EPITHELIAL CELL URINE <1 /hpf (0-5); URINE COLOR YELLOW (YELLW/STRAW)
[2016-04-18 11:47] LABS: AUTOMATED NEUTROPHIL # 3.6 TH/MM3 (1.8-7.7); BASOPHIL % 0.7 % (0.0-2.0); HEMATOCRIT 35.5 % (39.0-51.0); LYMPH % 9.2 % (9.0-44.0); LYMPHOCYTE # 0.4 TH/MM3 (1.0-4.8); MEAN CELL VOLUME 85.5 FL (80.0-100.0); MEAN CORPUSCULAR HEMOGLOBIN 27.9 PG (27.0-34.0); MEAN CORPUSCULAR HGB CONC 32.7 % (32.0-36.0); MONO % 8.1 % (0.0-8.0); PLATELET COUNT 181 TH/MM3 (150-450); RED BLOOD COUNT 4.15 MIL/MM3 (4.50-5.90); RED CELL DISTRIBUTION WIDTH 24.2 % (11.6-17.2); WHITE BLOOD COUNT 4.5 TH/MM3 (4.0-11.0)
[2016-04-18 11:48] LABS: APTT (PATIENT) 24.8 SEC (24.3-30.1); PROTHROMBIN TIME - PATIENT 10.8 SEC (9.8-11.6)
[2016-04-18 12:00] LABS: HEMO FLAGS AUTO DIFF
[2016-04-18 12:04] LABS: ALKALINE PHOSPHATASE 72 U/L (45-117); ALT (GPT) 17 U/L (12-78); ANION GAP 8 MEQ/L (5-15); AST (GOT) 8 U/L (15-37); BICARBONATE 28.8 MEQ/L (21.0-32.0); BLOOD UREA NITROGEN 9 MG/DL (7-18); CHLORIDE 105 MEQ/L (98-107); GLOMERULAR FILTRATION RATE 108 ML/MIN (>89); GLUCOSE,FASTING 90 MG/DL (74-99); POTASSIUM 4.2 MEQ/L (3.5-5.1); SODIUM (NA) 142 MEQ/L (136-145); TOTAL BILIRUBIN ADULT 0.5 MG/DL (0.2-1.0)
[2016-04-18 13:11] LABS: OVALOCYTES 1+ (NORMAL); PLATELET ESTIMATE SMEAR NORMAL (NORMAL); PLATELET MORPHOLOGY NORMAL (NORMAL); SCAN/DIFF AUTO DIFF CONFIRMED
--- NOTE | 2016-04-18 13:30 | RADRPT ---
EXAM DATE/TIME: 04/18/2016 11:40 [place] COMPARISON: No previous studies available for comparison. INDICATIONS : Evaluate for pneumonia, pneumothorax or communicable disease. Pre op colorectal surgery. MEDICAL HISTORY : None. SURGICAL HISTORY : None. ENCOUNTER: Initial ACUITY: 1 day PAIN SCORE: 0/10 LOCATION: Bilateral chest FINDINGS: PA and lateral views of the chest demonstrate the lungs to be symmetrically aerated without evidence of mass, infiltrate or effusion. The cardiomediastinal contours are unremarkable. Osseous structure s are intact. CONCLUSION: No acute disease. Toni Sharif MD FACR on April 18, 2016 at 13:28 Board Certified Radiologist. This report was verified electronically.
--- NOTE | 2016-04-19 13:00 | EKG ---
Date Performed: 04/18/2016 Time Performed: 10:43:47 PTAGE: 60 years EKG: Sinus rhythm WITH OCCASIONAL ECTOPIC PREMATURE COMPLEXES BORDERLINE LEFT AXIS DEVIATION MODERATE INTRAVENTRICULAR CONDUCTION DELAY BORDERLINE ECG WARNING: DATA QUALITY MAY AFFECT INTERPRETATION NO PREVIOUS TRACING DOCTOR: Lukasz Purcell Interpretating Date/Time 04/19/2016 12:58:36
== END ==
LOC: CPRE 09:57
PROVIDERS: ATTEND Colon & Rectal Surgery
DX: Z01.810 Encounter for preprocedural cardiovascular examination (principal); Z01.811 Encounter for preprocedural respiratory examination; Z01.812 Encounter for preprocedural laboratory examination; C20 Malignant neoplasm of rectum
CPT/HCPCS: 36415; 71020; 80053; 81001; 82378; 85025; 85610; 85730; 93005